=== PATIENT | female | born 1980 | race Caucasian/White ===

== ENCOUNTER 2019-05-19 15:41 | Emergency (ER) | payer OTHER ==
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
== END 2019-05-19 18:32 | disposition home or self-care (01) ==
LOC: ER 15:41
DX: S16.1XXA Strain of muscle, fascia and tendon at neck level, initial encounter (principal); M25.512 Pain in left shoulder; V89.2XXA Person injured in unspecified motor-vehicle accident, traffic, initial encounter; Y92.414 Local residential or business street as the place of occurrence of the external cause
CPT/HCPCS: 72050; 99283; 99284